=== PATIENT | female | born 1990 | race African-American/Black ===

== ENCOUNTER 2020-12-01 19:20 | Emergency (ER) | payer MEDICARE, MEDICAID ==
[~2020-12-01] VITALS: Ht 172.7 cm; Wt 118.0 kg
[2020-12-01] MEDS ORDERED: BACITRACIN ZINC OINT UDPKT TOP ONE (20:30)
[2020-12-01] MEDS ORDERED: LIDOCAINE HCL/EPINEPHRINE 1%-EPI 1:100,000 30 ML VIAL INFIL ONE (20:30)
[2020-12-01] MEDS ORDERED: ACETAMINOPHEN 325MG TABLET PO ONE (20:30)
[2020-12-01] MEDS ORDERED: LIDOCAINE HCL/EPINEPHRINE 1%-EPI 1:100,000 20 ML VIAL INFIL NR (20:45)
[2020-12-01 21:57] VITALS: BP 130/83
== END 2020-12-01 21:58 | disposition home or self-care (01) ==
LOC: ER 19:20
DX: L02.214 Cutaneous abscess of groin (principal); F17.200 Nicotine dependence, unspecified, uncomplicated; Z88.8 Allergy status to other drugs, medicaments and biological substances
CPT/HCPCS: 10060; 99283

== ENCOUNTER 2021-08-20 16:31 | Emergency (ER) | payer MEDICARE, MEDICAID ==
[~2021-08-20] VITALS: Ht 167.6 cm; Wt 115.8 kg
[2021-08-20 20:47] LABS: BASOPHILS % 0.3 % (0.0-2.0); EOSINOPHILS % 3.5 % (0.0-5.0); HEMATOCRIT. 38.6 % (36.0-48.0); LYMPHOCYTES % 31.9 % (20.0-50.0); MEAN CORPUSCULAR HEMOGLOBIN 27.2 pg (28.0-32.0); MEAN CORPUSCULAR VOLUME 80.8 fL (81.0-99.0); MEAN PLATELET VOLUME 8.2 fl (7.4-10.4); NEUTROPHILS % 56.3 % (40.0-76.0); PLATELET 261 x1000/uL (130-400); RED BLOOD CELL COUNT 4.77 mill/uL (4.2-5.4); RED CELL DISTRIBUTION WIDTH 14.8 % (11.6-14.6)
[2021-08-20 20:54] LABS: CHLORIDE 109 mEq/L (98-107)
[2021-08-20] MEDS ORDERED: LIDOCAINE HCL/EPINEPHRINE 1%-EPI 1:100,000 20 ML VIAL INFIL ONE (21:45)
[2021-08-20] MEDS ORDERED: ONDANSETRON 4MG ODT PO ONE (22:45)
[2021-08-20] MEDS ORDERED: HYDROCODONE/ACETAMINOPHEN 5/325MG TABLET PO ONE (22:45)
[2021-08-20] MEDS ORDERED: AMOX-424 MT (23:16)
[2021-08-20] MEDS ORDERED: DOXY100T2 MT (23:16)
[2021-08-20] MEDS ORDERED: IBUP-2030 MT (23:16)
[2021-08-20] MEDS ORDERED: HYDR-4001 MT (23:16)
[2021-08-21 00:20] VITALS: BP 145/80
== END 2021-08-21 00:22 | disposition home or self-care (01) ==
LOC: ER 16:31
DX: L02.214 Cutaneous abscess of groin (principal); Z88.8 Allergy status to other drugs, medicaments and biological substances; Z79.899 Other long term (current) drug therapy; Z98.890 Other specified postprocedural states; Z90.89 Acquired absence of other organs
CPT/HCPCS: 10060; 36415; 76857; 80048; 81025; 85025; 87070; 87205; 99285; J3490; Q0162

== ENCOUNTER 2023-03-28 14:12 | Emergency (ER) | payer MEDICARE, MEDICAID ==
[~2023-03-28] VITALS: Ht 167.6 cm; Wt 94.6 kg
[~2023-03-28 14:12] MED LIST: AMOX-424 MT; DOXY100T2 MT; HYDR-4001 MT; IBUP-2030 MT
[2023-03-28] MEDS ORDERED: LIDOCAINE HCL 1% 20ML VIAL (Pyxis) INJ INFIL ONE (15:15)
[2023-03-28] MEDS ORDERED: SULF1TAB48 MT (17:21)
[2023-03-28 17:50] VITALS: BP 118/87
== END 2023-03-28 17:52 | disposition home or self-care (01) ==
LOC: ER 14:26
DX: L02.214 Cutaneous abscess of groin (principal); Z88.8 Allergy status to other drugs, medicaments and biological substances
CPT/HCPCS: 10060; 81025; 99282; J3490

== ENCOUNTER 2023-03-30 09:41 | Emergency (ER) | payer MEDICARE, MEDICAID ==
[~2023-03-30] VITALS: Ht 167.6 cm; Wt 92.0 kg
[~2023-03-30 09:41] MED LIST changes: +SULF1TAB48 MT
[2023-03-30 09:50] VITALS: BP 121/80
== END 2023-03-30 12:28 | disposition home or self-care (01) ==
LOC: ER 09:46
DX: Z48.02 Encounter for removal of sutures (principal); L02.214 Cutaneous abscess of groin; F31.9 Bipolar disorder, unspecified
CPT/HCPCS: 99281